=== PATIENT | female | born 1995 | race Caucasian/White ===

== ENCOUNTER 2017-08-11 20:20 | Emergency (ER) | payer SELFPAY ==
[2017-08-11 20:49] VITALS: TEMP 99; O2SAT 100; BMI 21.0
--- NOTE | 2017-08-11 22:39 | CT ---
EXAM: CT Head Without Intravenous Contrast CLINICAL HISTORY: 21 years old, female; Pain; Headache; Additional info: R/O ich TECHNIQUE: Axial computed tomography images of the head/brain without intravenous contrast. All CT scans at this facility use one or more dose reduction techniques, viz.: automated exposure control; ma/kV adjustment per patient size (including targeted exams where dose is matched to indication; i.e. head); or iterative reconstruction technique. COMPARISON: No relevant prior studies available. FINDINGS: Brain: No acute intracranial hemorrhage. No significant white matter disease. No edema. Ventricles: No significant ventriculomegaly. Bones: No acute displaced fracture. Sinuses: Unremarkable as visualized. No acute sinusitis. Mastoid air cells: Unremarkable as visualized. No mastoid effusion. IMPRESSION: No acute intracranial hemorrhage, or suspicious mass effect.
--- NOTE | 2017-08-11 22:41 | CT ---
EXAM: CT Maxillofacial Without Intravenous Contrast CLINICAL HISTORY: 21 years old, female; Pain; Headache; Additional info: R/O FX TECHNIQUE: Axial computed tomography images of the face without intravenous contrast. All CT scans at this facility use one or more dose reduction techniques, viz.: automated exposure control; ma/kV adjustment per patient size (including targeted exams where dose is matched to indication; i.e. head); or iterative reconstruction technique. Coronal and sagittal reformatted images were created and reviewed. COMPARISON: No relevant prior studies available. FINDINGS: Bones/joints: No acute fracture. Metallic streak artifact within the right nares. Soft tissues: Symmetric. Orbits: Preserved. Sinuses: Unremarkable. No air-fluid levels. IMPRESSION: No acute fracture.
--- NOTE | 2017-08-11 22:43 | CT ---
EXAM: CT Cervical Spine Without Intravenous Contrast CLINICAL HISTORY: 21 years old, female; Pain; Neck pain; Additional info: R/O FX TECHNIQUE: Axial computed tomography images of the cervical spine without intravenous contrast. All CT scans at this facility use one or more dose reduction techniques, viz.: automated exposure control; ma/kV adjustment per patient size (including targeted exams where dose is matched to indication; i.e. head); or iterative reconstruction technique. Coronal and sagittal reformatted images were created and reviewed. COMPARISON: No relevant prior studies available. FINDINGS: Vertebrae: No acute fracture. Rotary subluxation of C1 on C2, possibly secondary to positioning. The and Alignment: Straightening and slight reversal of the normal curvature of the cervical spine, possibly muscular in origin. Discs/spinal canal/neural foramina: No acute findings. Soft tissues: Symmetric Lung apices: The visualized lung apices are clear. IMPRESSION: No acute fracture.
[2017-08-11 23:03] VITALS: BP 137/85; PULSE 73; RESP 18
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
--- NOTE | 2017-08-12 09:14 | RAD ---
PROCEDURE: Radiographs of the Lumbar Spine. HISTORY: r/o fx COMPARISON: No prior. FINDINGS: BONES: Normal alignment. No listhesis. No fracture. DISC SPACES: Unremarkable. OTHER FINDINGS: None. IMPRESSION: Unremarkable radiographs of the lumbar spine.
--- NOTE | 2017-08-12 09:14 | RAD ---
HISTORY: r/o fx COMPARISON: No prior. FINDINGS: BONES: Alignment maintained. No fracture. DISC SPACES: Normal. SOFT TISSUES: Normal. OTHER FINDINGS: None. IMPRESSION: Normal radiographs of the thoracic spine.
== END 2017-08-11 23:01 | disposition home or self-care (01) ==
LOC: ED 20:20
DX: R51 Headache (principal)

== ENCOUNTER 2017-12-05 17:28 | Emergency (ER) | payer OTHER ==
[2017-12-05 18:10] VITALS: BMI 18.5
[2017-12-05 18:15] VITALS: BP 125/85; PULSE 97; TEMP 98.6; O2SAT 99
[2017-12-05] MEDS ORDERED: TDAP Vaccine 0.5 mL Syr IM ONE (18:31)
[2017-12-05] MEDS ORDERED: Silver Sulfadiazine 1% Cream (25 gm) TP STA (18:31)
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
[2017-12-05 20:02] VITALS: RESP 17
== END 2017-12-05 20:02 | disposition home or self-care (01) ==
LOC: ED 17:28
DX: T22.211A Burn of second degree of right forearm, initial encounter (principal); X10.0XXA Contact with hot drinks, initial encounter; Y92.89 Other specified places as the place of occurrence of the external cause; Y99.0 Civilian activity done for income or pay; Z23 Encounter for immunization